=== PATIENT | male | born 1990 | race American Indian/Alaskan Native ===

== ENCOUNTER 2017-08-30 14:48 | Emergency (ER) | payer SELFPAY ==
[2017-08-30 15:20] VITALS: BP 155/91; PULSE 78; RESP 20; TEMP 98.1; O2SAT 99
--- NOTE | 2017-08-30 16:35 | C.PDOC ---
History Of Present Illness 27 y/o male present to ED stating he "wants to be cleared". Pt notes his family insisting for him to have psychiatric evaluation. Patient states he was seen at [facility] [place] last year for psych evaluation and was cleared, no h/o admissions. Patient admits to social stressors such as losing job and mother 2 years ago. Patient denies SI/HI, visual or auditory hallucinations, drug use or any other complaints at this time. Time Seen by Provider: 08/30/17 15:40 Chief Complaint (Nursing): Psychiatric Evaluation History Per: Patient History/Exam Limitations: no limitations Onset/Duration Of Symptoms: Days Current Symptoms Are (Timing): Still Present Suicide/Self Injury Attempted (Context): None Modifying Factor(s): None Past Medical History Reviewed: Historical Data, Nursing Documentation, Vital Signs Vital Signs: Last Vital Signs Temp 98.1 F 08/30/17 15:17 Pulse 78 08/30/17 15:17 Resp 20 08/30/17 15:17 BP 155/91 H 08/30/17 15:17 Pulse Ox 99 08/30/17 17:33 - Medical History PMH: No Chronic Diseases Surgical History: No Surg Hx Family History: States: No Known Family Hx - Social History Hx Alcohol Use: No Hx Substance Use: No - Immunization History Hx Tetanus Toxoid Vaccination: No Hx Influenza Vaccination: No Hx Pneumococcal Vaccination: No Review Of Systems Constitutional: Negative for: Fever, Chills Cardiovascular: Negative for: Chest Pain, Palpitations Gastrointestinal: Negative for: Nausea, Vomiting Skin: Negative for: Rash Psych: Negative for: Anxiety, Suicidal ideation, Withdrawal Physical Exam - Physical Exam Appears: Non-toxic, No Acute Distress Skin: Warm, Dry, No Rash Head: Atraumatic, Normacephalic Eye(s): bilateral: Normal Inspection, EOMI Nose: Normal Oral Mucosa: Moist Neck: Normal ROM, Supple Chest: Symmetrical Cardiovascular: Rhythm Regular Respiratory: Normal Breath Sounds, No Rales, No Rhonchi, No Wheezing Gastrointestinal/Abdominal: Soft, No Tenderness, No Guarding, No Rebound Extremity: Normal ROM, Capillary Refill (<2 seconds) Neurological/Psych: Oriented x3, Normal Speech, Normal Cognition ED Course And Treatment O2 Sat by Pulse Oximetry: 99 (RA) Pulse Ox Interpretation: Normal Progress Note: Patient seen and evaluated by cotton farmworker Luther who discussed with who concluded pt does not meet criteria for admission, to be d.c with outpatient referral for follow up. Disposition - Disposition Referrals: [facility] [Outside] Disposition: HOME/ ROUTINE Disposition Time: 16:33 Condition: STABLE Additional Instructions: Follow up with [facility] after discharge. Return to ER if symptoms persist or worsen. Address: [address] [place] [address] Instructions: Adjustment Disorder Forms: [employer] (Telugu) - Clinical Impression Clinical Impression: Adjustment disorder - PA / ENERGY EFFICIENCY ENGINEER / Resident Statement MD/DO has reviewed & agrees with the documentation as recorded. - Scribe Statement The provider has reviewed the documentation as recorded by the Scribe Brent Kamara All medical record entries made by the Swati were at my direction and personally dictated by me. I have reviewed the chart and agree that the record accurately reflects my personal performance of the history, physical exam, medical decision making, and the department course for this patient. I have also personally directed, reviewed, and agree with the discharge instructions and disposition.
== END 2017-08-30 16:44 | disposition home or self-care (01) ==
LOC: C.ER 14:48
DX: F43.20 Adjustment disorder, unspecified (principal)